=== PATIENT | female | born 1945 | race Caucasian/White ===

== ENCOUNTER 2018-01-13 08:51 | Emergency (ER) | payer OTHER ==
[~2018-01-13] VITALS: Ht 162.6 cm; Wt 102.1 kg
[2018-01-13] MEDS ORDERED: LEVOTHYROXINE112 MCG PO (09:42)
[2018-01-13] MEDS ORDERED: BYSTOLIC10 MG PO (09:42)
[2018-01-13] MEDS ORDERED: ZOLOFT50 MG PO (09:43)
[2018-01-13] MEDS ORDERED: EXEMESTANE25 MG (09:43)
[2018-01-13] MEDS ORDERED: BACITRACIN ZINC 15 GM OINT TOP SCH (10:15)
[2018-01-13] MEDS ORDERED: IBUPROFEN 600 MG TAB PO STA (10:16)
[2018-01-13 11:35] VITALS: BP 132/74
== END 2018-01-13 10:30 | disposition home or self-care (01) ==
LOC: FSED 08:51
DX: S80.212A Abrasion, left knee, initial encounter (principal); W01.0XXA Fall on same level from slipping, tripping and stumbling without subsequent striking against object, initial encounter; Y92.007 Garden or yard of unspecified non-institutional (private) residence as the place of occurrence of the external cause; R03.0 Elevated blood-pressure reading, without diagnosis of hypertension
CPT/HCPCS: 99284